=== PATIENT | female | born 1940 | race Caucasian/White ===

== ENCOUNTER 2024-02-15 11:49 | Emergency (ER) | payer MEDICARE, BC ==
[2024-02-15 12:39] LABS: BASOPHILS PERCENT AUTO 0.4 % (0.2-1.2); EOSINOPHILS PERCENT AUTO 3.5 % (0.0-4.0); HEMATOCRIT 40.4 % (33.0-47.0); LYMPHOCYTES PERCENT AUTO 24.7 % (25.0-50.0); MEAN CORPUSCULAR HGB CONC 34.7 g/dL (32.0-36.0); MEAN CORPUSCULAR VOLUME 86.5 fL (78.0-93.0); MONOCYTES PERCENT AUTO 15.3 % (2.0-11.0); NEUTROPHILS PERCENT AUTO 55.7 % (50.0-80.0); PLATELET COUNT,PLT 157 x10^3/uL (130-400); RED BLOOD CELL COUNT 4.67 x10^6/uL (4.00-5.50); WHITE BLOOD CELL COUNT,WBC 4.6 x10^3/uL (4.0-10.0)
[2024-02-15 12:40] LABS: EOSINOPHILS ABSOLUTE AUTO 0.2 x10^3/uL (0.0-0.5); IMMATURE GRAN ABSOLUTE AUTO 0.02 x10^3/uL (0.00-0.07); LYMPHOCYTES ABSOLUTE AUTO 1.1 x10^3/uL (1.0-4.8); MONOCYTES ABSOLUTE AUTO 0.7 x10^3/uL (0.0-0.8); NEUTROPHILS ABSOLUTE AUTO 2.5 x10^3/uL (1.8-7.7)
[2024-02-15 12:54] LABS: APPEARANCE,URINE CLEAR (CLEAR); BILIRUBIN,URINE NEGATIVE (NEGATIVE); COLOR,URINE YELLOW (YELLOW); GLUCOSE,URINE NEGATIVE (NEGATIVE); KETONES,URINE NEGATIVE (NEGATIVE); LEUKOCYTE ESTERASE,URINE NEGATIVE (NEGATIVE); NITRITE,URINE NEGATIVE (NEGATIVE); OCCULT BLOOD,URINE NEGATIVE (NEGATIVE); PROTEIN,URINE NEGATIVE (NEGATIVE); UROBILINOGEN,URINE 0.2 EU/dL (0.2)
[2024-02-15 12:58] LABS: A/G RATIO 0.94; ALANINE AMINOTRANSFERASE,ALT 25 U/L (14-59); ALBUMIN 3.4 g/dL (3.4-5.0); ALKALINE PHOSPHATASE 103 U/L (46-116); ASPARTATE AMNIOTRANSFERASE,AST 27 U/L (15-37); BILIRUBIN TOTAL 0.7 mg/dL (0.2-1.0); BLOOD UREA NITROGEN,BUN 26 mg/dL (7-18); CARBON DIOXIDE,CO2 35 mmol/L (21-32); CHLORIDE,CL 101 mmol/L (98-107); CREATININE 1.9 mg/dL (0.55-1.02); GLUCOSE RANDOM 142 mg/dL (70-99); POTASSIUM,K 3.6 mmol/L (3.5-5.1); SODIUM,NA 143 mmol/L (136-145); TSH ULTRASENSITIVE 2.474 uIU/mL (0.358-3.74)
[2024-02-15 12:59] LABS: ANION GAP 10.6 mmol/L (5-15); ESTIMATED GFR 26 mL/min (>=60)
[2024-02-15 13:00] LABS: CALCIUM 12.3 mg/dL (8.5-10.1)
[2024-02-15 13:12] LABS: BACTERIA,URINE RARE /HPF (NOT SEEN); RBC,URINE 0-5 /HPF (NOT SEEN); SQUAMOUS EPITHELIAL CELLS,UR FEW /HPF (NOT SEEN); WBC,URINE 0-5 /HPF (NOT SEEN)
[2024-02-15 13:26] VITALS: BP 162/96; PULSE 75
== END 2024-02-15 13:53 | disposition home or self-care (01) ==
LOC: VM.ED 11:49
DX: R00.2 Palpitations (principal); E83.52 Hypercalcemia; I11.0 Hypertensive heart disease with heart failure; I50.9 Heart failure, unspecified; Z79.899 Other long term (current) drug therapy; Z88.0 Allergy status to penicillin; Z88.1 Allergy status to other antibiotic agents; Z88.8 Allergy status to other drugs, medicaments and biological substances; Z88.2 Allergy status to sulfonamides; Z91.048 Other nonmedicinal substance allergy status
CPT/HCPCS: 36415; 71046; 80053; 81001; 84443; 85025; 99285

== ENCOUNTER 2024-03-19 09:47 | Inpatient (IN) | payer MEDICARE, BC ==
[2024-03-19 10:24] LABS: BASOPHILS PERCENT AUTO 0.2 % (0.2-1.2); EOSINOPHILS ABSOLUTE AUTO 0.2 x10^3/uL (0.0-0.5); EOSINOPHILS PERCENT AUTO 3.1 % (0.0-4.0); HEMATOCRIT 40.9 % (33.0-47.0); HEMOGLOBIN 14.3 g/dL (12.0-16.0); IMMATURE GRAN ABSOLUTE AUTO 0.01 x10^3/uL (0.00-0.07); LYMPHOCYTES ABSOLUTE AUTO 1.4 x10^3/uL (1.0-4.8); LYMPHOCYTES PERCENT AUTO 24.6 % (25.0-50.0); MEAN CORPUSCULAR HEMOGLOBIN 30.2 pg (26.0-32.0); MEAN CORPUSCULAR VOLUME 86.3 fL (78.0-93.0); MONOCYTES PERCENT AUTO 17.2 % (2.0-11.0); NEUTROPHILS ABSOLUTE AUTO 3.1 x10^3/uL (1.8-7.7); NEUTROPHILS PERCENT AUTO 54.7 % (50.0-80.0); PLATELET COUNT,PLT 182 x10^3/uL (130-400); RED BLOOD CELL COUNT 4.74 x10^6/uL (4.00-5.50); WHITE BLOOD CELL COUNT,WBC 5.6 x10^3/uL (4.0-10.0)
[2024-03-19 10:42] LABS: A/G RATIO 1.06; ALANINE AMINOTRANSFERASE,ALT 28 U/L (14-59); ALBUMIN 3.5 g/dL (3.4-5.0); ALKALINE PHOSPHATASE 103 U/L (46-116); ANION GAP 12.5 mmol/L (5-15); ASPARTATE AMNIOTRANSFERASE,AST 35 U/L (15-37); BILIRUBIN TOTAL 0.8 mg/dL (0.2-1.0); BLOOD UREA NITROGEN,BUN 14 mg/dL (7-18); CALCIUM 11.7 mg/dL (8.5-10.1); CARBON DIOXIDE,CO2 31 mmol/L (21-32); CHLORIDE,CL 104 mmol/L (98-107); CREATININE 1.6 mg/dL (0.55-1.02); ESTIMATED GFR 32 mL/min (>=60); GLUCOSE RANDOM 153 mg/dL (70-99); POTASSIUM,K 3.5 mmol/L (3.5-5.1); PROTEIN TOTAL,TP 6.8 g/dL (6.4-8.2); SODIUM,NA 144 mmol/L (136-145)
[2024-03-19] MEDS: Lactated Ringers 1,000 ML IV SCH (10:42)
[2024-03-19] MEDS: Furosemide 20 MG/2 ML VIAL IV ONE (12:32)
[2024-03-19] MEDS ORDERED: traMADol 50 MG Tab PO PRN (13:29)
[2024-03-19] MEDS: Furosemide 40 MG/4 ML VIAL IV ONE (14:13)
[2024-03-19] MEDS: Sodium Chloride 0.9% 1,000 ML IV SCH (14:13)
[2024-03-19 14:15] LABS: APPEARANCE,URINE CLEAR (CLEAR); BILIRUBIN,URINE NEGATIVE (NEGATIVE); COLOR,URINE YELLOW (YELLOW); GLUCOSE,URINE NEGATIVE (NEGATIVE); KETONES,URINE NEGATIVE (NEGATIVE); LEUKOCYTE ESTERASE,URINE NEGATIVE (NEGATIVE); NITRITE,URINE POSITIVE (NEGATIVE); OCCULT BLOOD,URINE NEGATIVE (NEGATIVE); PROTEIN,URINE NEGATIVE (NEGATIVE); UROBILINOGEN,URINE 0.2 EU/dL (0.2)
[2024-03-19 14:20] LABS: BACTERIA,URINE FEW /HPF (NOT SEEN); RBC,URINE NOT SEEN /HPF (NOT SEEN); SQUAMOUS EPITHELIAL CELLS,UR OCCASIONAL /HPF (NOT SEEN); WBC,URINE 0-5 /HPF (NOT SEEN)
[2024-03-19] MEDS: amLODIPine 2.5 MG Tab PO SCH (14:22)
[2024-03-19] MEDS: Propranolol 20 MG Tab PO SCH (14:22)
[2024-03-19 16:38] LABS: ALBUMIN 3.6 g/dL (3.4-5.0); C-REACTIVE PROTEIN 2.1 mg/dL (<=0.50); CALCIUM 11.3 mg/dL (8.5-10.1); CREATININE 1.5 mg/dL (0.55-1.02); EST CRCL DRUG DOSING (CG) 22.08 mL/min; MAGNESIUM 1.8 mg/dL (1.8-2.4); PHOSPHORUS 3.2 mg/dL (2.6-4.7); POTASSIUM,K 3.3 mmol/L (3.5-5.1); TSH ULTRASENSITIVE 2.643 uIU/mL (0.358-3.74)
[2024-03-19] MEDS: Potassium Chloride 10 MEQ Tab.ER PO SCH (17:42)
[2024-03-19] MEDS: rOPINIRole 2 MG Tab PO SCH (20:38)
[2024-03-20 06:43] LABS: BASOPHILS PERCENT AUTO 0.2 % (0.2-1.2); EOSINOPHILS ABSOLUTE AUTO 0.2 x10^3/uL (0.0-0.5); EOSINOPHILS PERCENT AUTO 3.5 % (0.0-4.0); HEMATOCRIT 40.3 % (33.0-47.0); HEMOGLOBIN 14.3 g/dL (12.0-16.0); IMMATURE GRAN ABSOLUTE AUTO 0.02 x10^3/uL (0.00-0.07); LYMPHOCYTES ABSOLUTE AUTO 1.5 x10^3/uL (1.0-4.8); LYMPHOCYTES PERCENT AUTO 26.5 % (25.0-50.0); MEAN CORPUSCULAR HEMOGLOBIN 30.6 pg (26.0-32.0); MEAN CORPUSCULAR HGB CONC 35.5 g/dL (32.0-36.0); MEAN CORPUSCULAR VOLUME 86.1 fL (78.0-93.0); MONOCYTES ABSOLUTE AUTO 0.9 x10^3/uL (0.0-0.8); MONOCYTES PERCENT AUTO 15.2 % (2.0-11.0); NEUTROPHILS ABSOLUTE AUTO 3.1 x10^3/uL (1.8-7.7); NEUTROPHILS PERCENT AUTO 54.2 % (50.0-80.0); PLATELET COUNT,PLT 176 x10^3/uL (130-400); RED BLOOD CELL COUNT 4.68 x10^6/uL (4.00-5.50); WHITE BLOOD CELL COUNT,WBC 5.7 x10^3/uL (4.0-10.0)
[2024-03-20 07:03] LABS: A/G RATIO 1.06; ALBUMIN 3.4 g/dL (3.4-5.0); BILIRUBIN TOTAL 0.7 mg/dL (0.2-1.0); CALCIUM 10.7 mg/dL (8.5-10.1); CREATININE 1.5 mg/dL (0.55-1.02); EST CRCL DRUG DOSING (CG) 22.08 mL/min; POTASSIUM,K 3.3 mmol/L (3.5-5.1); PROTEIN TOTAL,TP 6.6 g/dL (6.4-8.2)
[2024-03-20 07:04] LABS: ANION GAP 11.3 mmol/L (5-15)
[2024-03-20] MEDS: Venlafaxine 75 MG Cap.ER PO SCH (08:37)
[2024-03-20] MEDS: Propranolol 60 MG Cap.ER PO SCH (08:37)
[2024-03-20] MEDS: Spironolactone 25 MG Tab PO SCH (08:38)
[2024-03-20] MEDS: amLODIPine 5 MG Tab PO SCH (08:38)
[2024-03-20] MEDS: Carbidopa/Levodopa 25-100 MG Tab PO SCH (08:44)
[2024-03-20] MEDS ORDERED: Losartan 25 MG Tab PO SCH (09:00)
[2024-03-20 10:38] LABS: BASE EXCESS ARTERIAL,POC 5 mmol/L ((-2)-3); HCO3 ARTERIAL,POC 28.5 mmol/L (21-28); O2 SATURATION ARTERIAL,POC 94.6 % (94-98); PCO2 ARTERIAL,POC 41 mmHg (35-48); PH ARTERIAL,POC 7.45 pH (7.35-7.45); PO2 ARTERIAL,POC 71 mmHg (83-108); TCO2 ARTERIAL,POC 28.6 mmol/L (22-29)
[2024-03-20 11:10] LABS: CREATININE 1.4 mg/dL (0.55-1.02); EST CRCL DRUG DOSING (CG) 23.66 mL/min; MAGNESIUM 1.6 mg/dL (1.8-2.4); POTASSIUM,K 3.1 mmol/L (3.5-5.1)
[2024-03-20 11:26] LABS: ANION GAP 11.1 mmol/L (5-15)
[2024-03-20] MEDS: Potassium Chloride Riders 20 MEQ in Premix Bag 1 BAG IV SCH (16:26)
[2024-03-20] MEDS: NS + KCl 20mEq/L 1,000 ML IV SCH (17:15)
[2024-03-20] MEDS: Magnesium Sulfate/Water 2 GM in Premix Bag 1 BAG IV ONE (17:55)
[2024-03-20] MEDS: Enoxaparin 40 MG/0.4 ML Syringe SUBCUT SCH (18:53)
[2024-03-20] MEDS: Magnesium Oxide 400 MG Tab PO SCH (20:36)
[2024-03-21 06:45] LABS: BASOPHILS PERCENT AUTO 0.2 % (0.2-1.2); EOSINOPHILS ABSOLUTE AUTO 0.2 x10^3/uL (0.0-0.5); EOSINOPHILS PERCENT AUTO 4.7 % (0.0-4.0); HEMATOCRIT 39.4 % (33.0-47.0); HEMOGLOBIN 13.6 g/dL (12.0-16.0); IMMATURE GRAN ABSOLUTE AUTO 0.03 x10^3/uL (0.00-0.07); LYMPHOCYTES ABSOLUTE AUTO 1.2 x10^3/uL (1.0-4.8); LYMPHOCYTES PERCENT AUTO 24.1 % (25.0-50.0); MEAN CORPUSCULAR HEMOGLOBIN 30.5 pg (26.0-32.0); MEAN CORPUSCULAR HGB CONC 34.5 g/dL (32.0-36.0); MEAN CORPUSCULAR VOLUME 88.3 fL (78.0-93.0); MONOCYTES ABSOLUTE AUTO 0.7 x10^3/uL (0.0-0.8); MONOCYTES PERCENT AUTO 13.2 % (2.0-11.0); NEUTROPHILS ABSOLUTE AUTO 2.8 x10^3/uL (1.8-7.7); NEUTROPHILS PERCENT AUTO 57.2 % (50.0-80.0); PLATELET COUNT,PLT 175 x10^3/uL (130-400); RED BLOOD CELL COUNT 4.46 x10^6/uL (4.00-5.50); WHITE BLOOD CELL COUNT,WBC 4.9 x10^3/uL (4.0-10.0)
[2024-03-21 07:16] LABS: ALBUMIN 3.2 g/dL (3.4-5.0); CALCIUM 9.6 mg/dL (8.5-10.1); CREATININE 1.3 mg/dL (0.55-1.02); EST CRCL DRUG DOSING (CG) 25.48 mL/min; PHOSPHORUS 2.3 mg/dL (2.6-4.7); POTASSIUM,K 4.6 mmol/L (3.5-5.1)
[2024-03-21] MEDS ORDERED: Flumazenil 0.1 MG/ML 5 ML MDV IVPUSH PRN (10:38)
[2024-03-21] MEDS: LORazepam 2 MG/ML SDV IVPUSH ONE (11:21)
[2024-03-21] MEDS ORDERED: Sodium Chloride 0.9% 1,000 ML IV SCH (14:15)
[2024-03-21] MEDS: Lactated Ringers 1,000 ML IV SCH (14:34)
[2024-03-21] MEDS ORDERED: Metoprolol Tartrate 5 MG/5 ML SDV IVPUSH PRN (17:37)
[2024-03-21] MEDS: Metoprolol Tartrate 5 MG/5 ML SDV IVPUSH ONE (17:54)
[2024-03-21] MEDS: LORazepam 2 MG/ML SDV IVPUSH PRN (17:58)
[2024-03-22] MEDS: Ketorolac 15 MG/ML SDV IVPUSH PRN (01:05)
[2024-03-22 08:36] LABS: BASOPHILS PERCENT AUTO 0.2 % (0.2-1.2); EOSINOPHILS ABSOLUTE AUTO 0.2 x10^3/uL (0.0-0.5); EOSINOPHILS PERCENT AUTO 4.2 % (0.0-4.0); HEMATOCRIT 39.6 % (33.0-47.0); HEMOGLOBIN 13.9 g/dL (12.0-16.0); IMMATURE GRAN ABSOLUTE AUTO 0.02 x10^3/uL (0.00-0.07); LYMPHOCYTES ABSOLUTE AUTO 1.3 x10^3/uL (1.0-4.8); LYMPHOCYTES PERCENT AUTO 27.8 % (25.0-50.0); MEAN CORPUSCULAR HEMOGLOBIN 30.5 pg (26.0-32.0); MEAN CORPUSCULAR HGB CONC 35.1 g/dL (32.0-36.0); MEAN CORPUSCULAR VOLUME 86.8 fL (78.0-93.0); MONOCYTES ABSOLUTE AUTO 0.7 x10^3/uL (0.0-0.8); MONOCYTES PERCENT AUTO 14.4 % (2.0-11.0); NEUTROPHILS ABSOLUTE AUTO 2.5 x10^3/uL (1.8-7.7); PLATELET COUNT,PLT 180 x10^3/uL (130-400); RED BLOOD CELL COUNT 4.56 x10^6/uL (4.00-5.50); WHITE BLOOD CELL COUNT,WBC 4.8 x10^3/uL (4.0-10.0)
[2024-03-22 08:41] VITALS: BP 215/92
[2024-03-22 08:52] LABS: CALCIUM 9.9 mg/dL (8.5-10.1); CREATININE 1.3 mg/dL (0.55-1.02); EST CRCL DRUG DOSING (CG) 25.48 mL/min
[2024-03-22 10:16] VITALS: PULSE 62
[2024-03-23 22:07] LABS: ALBUMIN 3.53 g/dL (3.75-5.01); ALPHA 1 GLOBULIN 0.37 g/dL (0.19-0.46); ALPHA 2 GLOBULIN 0.77 g/dL (0.48-1.05); BETA GLOBULIN 0.76 g/dL (0.48-1.10); GAMMA 0.87 g/dL (0.62-1.51); TOTAL PROTEIN, SERUM 6.3 g/dL (6.3-8.2)
== END 2024-03-22 12:37 | disposition swing bed (61) | DRG 641 ==
LOC: VM.ED 09:47 → VM.MS 12:18
PROVIDERS: ADMIT Internal Medicine; ATTEND Internal Medicine
DX: E83.52 Hypercalcemia (principal); I11.0 Hypertensive heart disease with heart failure; I50.9 Heart failure, unspecified; I13.0 Hypertensive heart and chronic kidney disease with heart failure and stage 1 through stage 4 chronic kidney disease, or unspecified chronic kidney disease; N17.9 Acute kidney failure, unspecified; I50.32 Chronic diastolic (congestive) heart failure; Z91.048 Other nonmedicinal substance allergy status; N18.30 Chronic kidney disease, stage 3 unspecified; Z66 Do not resuscitate; E78.5 Hyperlipidemia, unspecified; G47.00 Insomnia, unspecified; M06.9 Rheumatoid arthritis, unspecified; E87.6 Hypokalemia; R25.1 Tremor, unspecified; G47.30 Sleep apnea, unspecified; F32.A Depression, unspecified; H35.3290 Exudative age-related macular degeneration, unspecified eye, stage unspecified; G89.29 Other chronic pain; M54.9 Dorsalgia, unspecified; E83.42 Hypomagnesemia; R45.1 Restlessness and agitation; Z88.1 Allergy status to other antibiotic agents; Z88.2 Allergy status to sulfonamides; Z88.8 Allergy status to other drugs, medicaments and biological substances; Z88.0 Allergy status to penicillin; Z96.612 Presence of left artificial shoulder joint; Z90.710 Acquired absence of both cervix and uterus; Z98.890 Other specified postprocedural states; Z96.652 Presence of left artificial knee joint; Z79.899 Other long term (current) drug therapy; Z98.49 Cataract extraction status, unspecified eye; Z87.11 Personal history of peptic ulcer disease
CPT/HCPCS: 36415; 36600; 51702; 70450; 71045; 80048; 80053; 80069; 81001; 82140; 82533; 82607; 82652; 82803; 82947; 83735; 83880; 84155; 84165; 84443; 85025; 85652; 86140; 93005; 93010; 96360; 97161-GP; 97165-GO; 97535-GO; 99284; 99285-25; A9270-GY; J1650; J1885; J1940; J2060; J3475; J3480; J3490; J7030; J7120

== ENCOUNTER 2024-03-22 11:56 | Inpatient (IN) | payer MEDICARE, BC ==
[2024-03-22] MEDS ORDERED: Morphine 2 MG/ML SYRINGE IVPUSH PRN (14:21)
[2024-03-22] MEDS ORDERED: Naloxone 0.4 MG/ML SDV IVPUSH PRN (14:21)
[2024-03-22] MEDS: Sodium Chloride 0.9% 1,000 ML IV SCH (14:48)
[2024-03-22] MEDS: Morphine 2 MG/ML SYRINGE IVPUSH SCH (15:17)
[2024-03-23] MEDS: Morphine 2 MG/ML SYRINGE IVPUSH SCH (20:52)
[2024-03-24] MEDS: Morphine 2 MG/ML SYRINGE IVPUSH PRN (18:31)
[2024-03-25] MEDS: Melatonin 3 MG Tab PO ONE (01:40)
[2024-03-25] MEDS ORDERED: Polyethylene Glycol 3350 Powder 17 GM Packet PO PRN (18:47)
[2024-03-25] MEDS: traZODone 50 MG Tab PO SCH (20:39)
[2024-03-25] MEDS: rOPINIRole 2 MG Tab PO SCH (20:39)
[2024-03-25] MEDS: Losartan 25 MG Tab PO SCH ×2 (21:37→21:50)
[2024-03-26] MEDS: Melatonin 3 MG Tab PO SCH (20:13)
[2024-03-26] MEDS: Acetaminophen/HYDROcodone 325-5 MG Tab PO SCH (20:14)
[2024-03-27] MEDS: LORazepam 0.5 MG Tab PO PRN (05:01)
[2024-03-27] MEDS: Losartan 25 MG Tab PO SCH (08:53)
[2024-03-28] MEDS: Calcium Carbonate 750 MG Tab.Chew PO PRN (20:33)
[2024-03-29] MEDS ORDERED: LORazepam 0.5 MG Tab PO PRN (17:53)
[2024-03-30] MEDS ORDERED: Flumazenil 0.1 MG/ML 5 ML MDV IVPUSH PRN (02:03)
[2024-03-30] MEDS: LORazepam 2 MG/ML SDV IM PRN (02:10)
[2024-03-30] MEDS ORDERED: Acetaminophen/HYDROcodone 325-5 MG Tab PO PRN (08:27)
[2024-03-30 09:20] LABS: BASOPHILS PERCENT AUTO 0.2 % (0.2-1.2); EOSINOPHILS ABSOLUTE AUTO 0.2 x10^3/uL (0.0-0.5); EOSINOPHILS PERCENT AUTO 4.9 % (0.0-4.0); HEMATOCRIT 41.3 % (33.0-47.0); HEMOGLOBIN 14.4 g/dL (12.0-16.0); IMMATURE GRAN ABSOLUTE AUTO 0.01 x10^3/uL (0.00-0.07); LYMPHOCYTES ABSOLUTE AUTO 1.4 x10^3/uL (1.0-4.8); LYMPHOCYTES PERCENT AUTO 31.9 % (25.0-50.0); MEAN CORPUSCULAR HEMOGLOBIN 30.5 pg (26.0-32.0); MEAN CORPUSCULAR HGB CONC 34.9 g/dL (32.0-36.0); MEAN CORPUSCULAR VOLUME 87.5 fL (78.0-93.0); MONOCYTES ABSOLUTE AUTO 0.7 x10^3/uL (0.0-0.8); MONOCYTES PERCENT AUTO 15.5 % (2.0-11.0); NEUTROPHILS ABSOLUTE AUTO 2.1 x10^3/uL (1.8-7.7); NEUTROPHILS PERCENT AUTO 47.3 % (50.0-80.0); PLATELET COUNT,PLT 201 x10^3/uL (130-400); RED BLOOD CELL COUNT 4.72 x10^6/uL (4.00-5.50); WHITE BLOOD CELL COUNT,WBC 4.5 x10^3/uL (4.0-10.0)
[2024-03-30 09:34] LABS: A/G RATIO 1.23; ALBUMIN 3.7 g/dL (3.4-5.0); BILIRUBIN TOTAL 0.9 mg/dL (0.2-1.0); CALCIUM 11.5 mg/dL (8.5-10.1); CREATININE 1.5 mg/dL (0.55-1.02); EST CRCL DRUG DOSING (CG) 22.08 mL/min; POTASSIUM,K 3.8 mmol/L (3.5-5.1); PROTEIN TOTAL,TP 6.7 g/dL (6.4-8.2)
[2024-03-30 09:44] LABS: ANION GAP 10.8 mmol/L (5-15)
[2024-03-30] MEDS: Losartan 50 MG Tab PO SCH (12:35)
[2024-03-30] MEDS: QUEtiapine 25 MG Tab PO PRN (23:22)
[2024-03-31 08:14] LABS: ANION GAP 10.5 mmol/L (5-15); CREATININE 1.4 mg/dL (0.55-1.02); EST CRCL DRUG DOSING (CG) 23.66 mL/min; POTASSIUM,K 3.5 mmol/L (3.5-5.1)
[2024-03-31] MEDS: Furosemide 20 MG Tab PO SCH (12:00)
[2024-03-31] MEDS: Potassium Chloride 10 MEQ Tab.ER PO SCH (15:49)
[2024-04-01] MEDS: busPIRone 5 MG Tab PO SCH (11:05)
[2024-04-01] MEDS: Alendronate 70 MG Tab PO SCH (11:21)
[2024-04-01] MEDS: Iopamidol 612 MG/ML 100 ML Bottle IVPUSH ONE (11:57)
[2024-04-01] MEDS: Sodium Chloride 0.9% 1,000 ML IV SCH (12:25)
[2024-04-02] MEDS: Acetaminophen 500 MG Tab PO PRN (03:41)
[2024-04-02 08:16] LABS: A/G RATIO 1.13; ALBUMIN 3.4 g/dL (3.4-5.0); ANION GAP 11.5 mmol/L (5-15); BILIRUBIN TOTAL 0.6 mg/dL (0.2-1.0); CALCIUM 11.5 mg/dL (8.5-10.1); CREATININE 1.4 mg/dL (0.55-1.02); EST CRCL DRUG DOSING (CG) 23.66 mL/min; POTASSIUM,K 3.5 mmol/L (3.5-5.1); PROTEIN TOTAL,TP 6.4 g/dL (6.4-8.2)
[2024-04-02] MEDS: amLODIPine 5 MG Tab PO SCH (08:28)
[2024-04-02] MEDS: Zoledronic Acid in Water 5 MG in Premix Bag 1 BAG IV ONE (13:50)
[2024-04-02] MEDS: Sodium Chloride 0.9% 1,000 ML IV SCH (13:51)
[2024-04-03 08:26] LABS: CALCIUM 10.7 mg/dL (8.5-10.1); CREATININE 1.5 mg/dL (0.55-1.02); EST CRCL DRUG DOSING (CG) 22.08 mL/min; POTASSIUM,K 3.8 mmol/L (3.5-5.1)
[2024-04-03 08:28] LABS: ANION GAP 10.8 mmol/L (5-15)
[2024-04-03] MEDS: Dexamethasone 2 MG Tab PO ONE (18:17)
[2024-04-03] MEDS: LORazepam 0.5 MG Tab PO SCH (20:35)
[2024-04-04 06:24] VITALS: PULSE 74
[2024-04-04] MEDS: Dexamethasone 2 MG Tab PO ONE (08:05)
[2024-04-04 20:07] LABS: HIV 1,2 COMBO AG/AB CIA W/RFLX Negative (Negative)
[2024-04-04] MEDS: LORazepam 0.5 MG Tab PO SCH (20:40)
[2024-04-04] MEDS: LORazepam 0.5 MG Tab PO PRN (23:26)
[2024-04-05 07:38] LABS: BASOPHILS PERCENT AUTO 0.2 % (0.2-1.2); EOSINOPHILS ABSOLUTE AUTO 0.1 x10^3/uL (0.0-0.5); HEMATOCRIT 39.3 % (33.0-47.0); HEMOGLOBIN 13.8 g/dL (12.0-16.0); IMMATURE GRAN ABSOLUTE AUTO 0.04 x10^3/uL (0.00-0.07); LYMPHOCYTES ABSOLUTE AUTO 1.5 x10^3/uL (1.0-4.8); LYMPHOCYTES PERCENT AUTO 25.1 % (25.0-50.0); MEAN CORPUSCULAR HEMOGLOBIN 30.7 pg (26.0-32.0); MEAN CORPUSCULAR HGB CONC 35.1 g/dL (32.0-36.0); MEAN CORPUSCULAR VOLUME 87.3 fL (78.0-93.0); MONOCYTES ABSOLUTE AUTO 0.8 x10^3/uL (0.0-0.8); NEUTROPHILS ABSOLUTE AUTO 3.7 x10^3/uL (1.8-7.7); PLATELET COUNT,PLT 187 x10^3/uL (130-400); WHITE BLOOD CELL COUNT,WBC 6.1 x10^3/uL (4.0-10.0)
[2024-04-05 08:00] LABS: ALBUMIN 3.3 g/dL (3.4-5.0); ANION GAP 9.4 mmol/L (5-15); BILIRUBIN TOTAL 0.4 mg/dL (0.2-1.0); CREATININE 1.3 mg/dL (0.55-1.02); EST CRCL DRUG DOSING (CG) 25.48 mL/min; POTASSIUM,K 3.4 mmol/L (3.5-5.1); PROTEIN TOTAL,TP 6.6 g/dL (6.4-8.2)
[2024-04-05 08:07] VITALS: BP 166/90
[2024-04-05 08:08] LABS: MYELOPEROXIDASE AB 0 AU/mL (0-19); SERINE PROTEINASE 3, IGG 1 AU/mL (0-19)
[2024-04-05] MEDS: Calcium Carbonate 750 MG Tab.Chew PO ONE (09:48)
[2024-04-05] MEDS: Spironolactone 25 MG Tab PO SCH (09:48)
[2024-04-05 18:06] LABS: ACE 49 U/L (16-85)
[2024-04-06 18:06] LABS: ASPERGILLUS <1:8 (<1:8); BLASTOMYCES AB 0.5 IV (<=0.9); COCCIDIOIDES AB BY COMPLEMENT <1:2 (<1:2); HISTOPLASMA MYCEL AB <1:8 (<1:8); HISTOPLASMA YEAST AB <1:8 (<1:8)
[2024-04-07] MEDS ORDERED: Alendronate 70 MG Tab PO SCH (14:44)
== END 2024-04-05 10:20 | DRG 947 ==
LOC: VM.MS 13:14
PROVIDERS: ADMIT Physician Assistant; ATTEND Physician Assistant
DX: R53.1 Weakness (principal); G93.41 Metabolic encephalopathy; I13.0 Hypertensive heart and chronic kidney disease with heart failure and stage 1 through stage 4 chronic kidney disease, or unspecified chronic kidney disease; N17.9 Acute kidney failure, unspecified; I50.32 Chronic diastolic (congestive) heart failure; Z51.5 Encounter for palliative care; Z66 Do not resuscitate; R53.81 Other malaise; E87.6 Hypokalemia; E83.52 Hypercalcemia; R62.51 Failure to thrive (child); I25.2 Old myocardial infarction; E78.00 Pure hypercholesterolemia, unspecified; F32.A Depression, unspecified; G25.81 Restless legs syndrome; G47.00 Insomnia, unspecified; R62.7 Adult failure to thrive; G89.29 Other chronic pain; M54.9 Dorsalgia, unspecified; H35.3290 Exudative age-related macular degeneration, unspecified eye, stage unspecified; E83.42 Hypomagnesemia; N18.9 Chronic kidney disease, unspecified; Z88.1 Allergy status to other antibiotic agents; Z88.0 Allergy status to penicillin; Z88.8 Allergy status to other drugs, medicaments and biological substances; Z87.11 Personal history of peptic ulcer disease; Z90.49 Acquired absence of other specified parts of digestive tract; Z98.49 Cataract extraction status, unspecified eye; Z90.710 Acquired absence of both cervix and uterus; Z96.659 Presence of unspecified artificial knee joint; Z96.619 Presence of unspecified artificial shoulder joint
CPT/HCPCS: 36415; 71270; 74178; 80048; 80053; 82164; 83516; 83615; 83735; 85025; 86036; 86606; 86612; 86635; 86698; 87389; 97110-GP; 97116-GP; 97165-GO; 97530-GO; 97530-GP; 97535-GO; A9270-GY; J2060; J2270; J3489; J3490; J7030; J8540; Q9967; U0002